=== PATIENT | male | born 1945 ===

== ENCOUNTER → 2022-10-15 12:03 | Outpatient (CLI) | payer OTHER, SELFPAY ==
[2022-10-15 12:39] LABS: Hematocrit 35.2 % (41-53); Hemoglobin 11.5 g/dL (13.5-17.5); Mean Corpuscular HGB Conc 32.5 % (30-36); Mean Corpuscular Volume 89.2 fL (80-100); Platelet Count 235 X10^3/uL (150-400); Red Blood Cell Count 3.95 X10^6/uL (4.5-5.9); Red Cell Distribution Width 16.4 % (11.6-14.8); White Blood Cell Count 11.5 X10^3/uL (4.5-11.0)
[2022-10-15 12:44] LABS: Add Manual Diff / Slide Review YES
[2022-10-15 13:04] LABS: Vancomycin Trough 25.1 ug/mL (10-20)
[2022-10-15 13:28] LABS: Neutrophils Absolute Manual 8970 /uL (3000-5900); Nucleated Red Blood Cells 1 #/Diff; Total Cells Counted 100
[2022-10-15 13:37] LABS: Anisocytosis 1+; Poikilocytosis 1+
== END ==
PROVIDERS: PCP Family Medicine; Referring Provider Internal Medicine Infectious Disease; Visit Provider Internal Medicine Infectious Disease
DX: R78.81 Bacteremia (principal)
CPT/HCPCS: 80202; 85007; 85025